=== PATIENT | female | born 1990 | race Caucasian/White ===

== ENCOUNTER 2019-05-19 12:00 | Inpatient (IN) | payer OTHER ==
[2019-05-19] MEDS ORDERED: ELECTROLYTE-148 SOLN 500 ML IV ONE (12:22)
[2019-05-19] MEDS ORDERED: CITRIC ACID/SODIUM CITRATE 30 ML UNIT-DOSE CUP PO ONE (12:22)
[2019-05-19] MEDS ORDERED: ELECTROLYTE-148 SOLN 1,000 ML IV SCH (12:30)
[2019-05-19 12:52] LABS: INR 0.96 (0.83-1.09); PROTHROMBIN TIME (PATIENT) 11.3 SEC (9.7-13.0)
[2019-05-19 12:54] LABS: ACTIVATED PTT 30.4 SECONDS (25.2-36.5)
[2019-05-19 12:59] VITALS: BMI 28.6
[2019-05-19] MEDS ORDERED: OXYTOCIN 20 UNITS in 0.9% NS 40 UNIT/2,000 ML INFUS.BAG IV ONE (13:31)
--- NOTE | 2019-05-19 13:45 | HP ---
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: No: Alzheimer's, CVA, Dementia, Migraine, Multiple Sclerosis, Peripheral Neuropathy, Parkinson's, Seizure, Syncope, TIA, Vertigo, Other Cardiovascular: No: AFIB, Aneurysm, Aortic Insufficiency, Aortic Stenosis, CAD, CHF, Deep Vein Thrombosis, HTN, Hyperlipdemia, ND, Mitral Insufficiency, Mitral Stenosis, Murmur, Pulmonary Hypertension, Other Pulmonary: No: Asthma, Bronchitis, Cancer, COPD, O2 Dependent, Pneumonia, Previously Intubated, Pulmonary Embolus, Pulmonary Fibrosis, Sleep Apnea, Other Gastrointestinal: No: Ascites, Cancer, Constipation, Crohn's Disease, Diverticulitis, Diverticulosis, Esophageal Varices, Gastritis, GERD, GI Bleed, Hemorrhoids, Hiatal Hernia, Inflamatory Bowel Disease, Irritable Bowel Disease, Pancreatitis, Peptic Ulcer Disease, Ulcerative Colitis, Other Hepatobiliary: No: Cirrhosis, Cholelithiasis, Cholecystitis, Choledocholithiasis , Hepatitis A, Hepatitis B, Hepatitis C, Other Renal/: No: Renal Failure, Renal Inusuff, BPH, Cancer, Hematuria, Hemodialysis , Neurogenic Bladder, Renal Calculi, UTI, Other Reproductive: No: Ectopic , Endometriosis, Fibroids, PID, Polycystic Ovary Syndrome, Postmenopausal, Other ...: 1 ...Para: 0 ...Term: 0 ...: 0 ...Spon : 0 ...Induced : 0 ...Multiple Gestation: 0 ...LMP: 08/15/18 ... Weeks Gestation by Dates: 39.4 ...EDC by Dates: 05/22/19 ...EDC by Sono: 05/23/19 Heme/Onc: No: Anemia, B12 Deficiency, Bleeding Disorder, Cancer, Current Chemotherapy, Current Radiation Therapy, Hemochromatosis, Hypercoaguable State, Myeloproliferative Synd, Sickle Cell Disease, Sickle Cell Trait, Thrombocytopenia, Other Infectious Disease: No: AIDS, C-Diff, Herpes Zoster, HIV, MRSA, STD's, Tuberculosis, VREF, Other Psych: No: Addictions, Anxiety, Bipolar, Depression, Panic, Psychosis, Schizophrenia, Other Musculoskeletal: No: Bursitis, Chronic low back pain, Hemiparesis, Hemiplegia, Osteoarthritis, Paraplegia, Other Rheumatology: No: Fibromyalgia, Gout, Lupus, Rheumatoid Arthritis, Sarcoidosis, Vasculitis, Other ENT: No: Allergic Rhinitis, Sinusitis, Other Endocrine: No: Papillion's Disease, Pankaj's Disease, Diabetes Insipidus, Diabetes Mellitus, Hyperparathyroidism, Hyperthyroidism, Hypothyroidism, Osteopenia, SIADH, Other Dermatology: No: Basal Cell, Cellulitis, Eczema, Melanoma, Psoriasis, Squamous Cell, Other - Past Surgical History Past Surgical History: No: None, AAA Repair, AICD, Amputation, Appendectomy, Arthrosocopy, AV Fistula/Graft, Bariatric Surgery, Breast Biopsy, Bypass, CABG, Carotid Endarterectomy, Cataract Removal, Cholecystectomy, Colectomy, Colonoscopy, Colostomy, Craniotomy, , Cystectomy, Hernia Repair, Hysterectomy, Ileal Conduit, Ileosotomy, Joint Replacement, Kidney Transplant, Laminectomy, Liver Transplant, Mastectomy, Nephrectomy, Oopherectomy, Orchiectomy, Permanent Pacemaker, Prostatectomy, Splenectomy, Stent, Thoracotomy , TURP, Tonsillectomy, Tubal Ligation, Upper Endoscopy, Valve Replacement, Vasectomy, Vein Stripping/Ligation Hx Myomectomy: No Hx Transabdominal Cerclage: No - Smoking History Smoking history: Never smoked Have you smoked in the past 12 months: No - Alcohol/Substance Use Hx Alcohol Use: No Home Medications - Allergies Allergies/Adverse Reactions: Allergies Allergy/AdvReac Type Severity Reaction Status Date / Time No Known Allergies Allergy Verified 05/19/19 12:22 - Home Medications Home Medications: Ambulatory Orders Vits96/Iron Fum/Folic [ Tablet] 1 each PO DAILY 05/19/19 Family Medical History Family History: Unremarkable Review of Systems Findings/Remarks: N/A Physical Exam - Maternity Vital Signs: Vital Signs Temperature 98.8 F 05/19/19 12:37 Pulse Rate 88 05/19/19 12:37 Respiratory Rate 18 05/19/19 12:37 Blood Pressure 116/78 05/19/19 12:37 O2 Sat by Pulse Oximetry (%) Constitutional: Yes: Well Nourished HENT: Yes: Atraumatic Neck: Yes: Supple Cardiovascular: Yes: Regular Rate and Rhythm Breast(s): Yes: WNL - Abdominal Exam/OB Number of Fetuses: Single Presentation: Breech (bedside sono) Contractions: No Regularity: Irritability Monitor Mode: External Heart Rate (range): 125 Category: I Accelerations: Uniform Decelerations: None - Vaginal Exam/OB Vaginal Bleediing: No Speculum Exam: No Amniotic Membrane Status: Intact Presentation: Marc Breech - Physical Exam Musculoskeletal: Yes: WNL Extremities: Yes: WNL Edema: Yes Edema: LLE: Trace, RLE: Trace Integumentary: Yes: WNL ...Motor Strength: WNL Psychiatric: Yes: Alert, Oriented Imaging - Results Ultrasound: Report Reviewed Assessment/Plan 28 y/o G1 @ 39.4wks, breech presentation scheduled CD, risks and complications of procedure discussed and all questions answered. Informed consnet obtained. -Proceed as scheduled
[2019-05-19] MEDS ORDERED: morphine SULFATE/PF 0.5 MG/ML (2cc Syringe - QUVA) ONE (13:55)
[2019-05-19] MEDS ORDERED: ONDANSETRON 4 MG/2 ML VIAL IVPUSH PRN (13:56)
[2019-05-19] MEDS ORDERED: OXYTOCIN 20 UNITS in 0.9% NS 20 UNIT/1,000 ML INFUS.BAG IV ONE (13:57)
[2019-05-19] MEDS ORDERED: IBUPROFEN 800 MG/8 ML IJ IVPB PRN (16:51)
[2019-05-19] MEDS ORDERED: OXYTOCIN 20 UNITS in 0.9% NS 20 UNIT/1,000 ML INFUS.BAG IV SCH (17:00)
--- NOTE | 2019-05-19 17:04 | OP ---
Operative Note - Note: Operative Date: 05/19/19 (dic # [id number]) Pre-Operative Diagnosis: Scheduled section for breech presentation Operation: PLTCS Findings: see dictation Post-Operative Diagnosis: Same as Pre-op Surgeon: Jose Mercado Emergency Department Manager: Hemant Chisholm Anesthesia: Spinal Estimated Blood Loss (mls): 700 Operative Report Dictated: Yes
--- NOTE | 2019-05-19 17:28 | OP ---
DATE OF OPERATION: 05/19/2019 ATTENDING PHYSICIAN: Jose Ann MD. PREOPERATIVE DIAGNOSIS: A 28-year-old 1 at 39 and 4 weeks of gestation, breech presentation, scheduled section. POSTOPERATIVE DIAGNOSIS: A 28-year-old 1 at 39 and 4 weeks of gestation , breech presentation, scheduled section. Double footling breech. SURGERY: Primary low transverse section. SURGEON: Jose Ann MD. HOME HEALTH OCCUPATIONAL THERAPIST: EDI Champagne. ANESTHESIA: Spinal. ESTIMATED BLOOD LOSS: 100. INTRAVENOUS FLUIDS: 1100. URINE OUTPUT: Clear urine. COMPLICATIONS: None. INTRAOPERATIVE FINDINGS: Normal intraabdominal wall anatomy. The low uterine segment was slightly effaced. Infant clear amniotic fluid in double footling breech presentation back anterior, live viable male. Small fundal subserosal fibroid approximately 2 x 1 cm noted. Lateral tubes and ovaries consistent with normal anatomy. DESCRIPTION OF PROCEDURE: The patient was taken to the operating room where anesthesia was found to be adequate. She was then prepped and draped in the normal sterile fashion. A Blanco catheter was placed atraumatically. Appropriate timeout took place. Pfannenstiel skin incision was made with the scalpel and carried to underlying fascia with the Bovie. The fascia was incised in the midline, and incision extended laterally with sharp dissection. The underlying rectus muscles were dissected off sharply. The rectus muscles were in the midline with blunt dissection, and the peritoneum was entered bluntly as well. Incision was extended laterally with blunt dissection. Bladder blade was placed on the lower uterine segment as previously mentioned. Transverse lower uterine segment incision was made with the scalpel and extended laterally with blunt dissection. 's feet were secured and delivered through the surgical incision with breech delivery maneuvers without difficulty. The umbilical cord was clamped and cut after delay. The infant was handed off to the waiting NICU staff. The sample for the cord for gases and blood were obtained. The placenta was delivered manually and intact. The lower uterine segment incision was reapproximated with 1-0 Polysorb running locked suture. Excellent structural reapproximation with 1 layered suture. Two figure-of- eights of the same suture were utilized to neutralize minimal oozing from the midline incision. The uterus was internalized to the pelvic cavity and gutters were cleared of all clots and debris. Lower uterine segment incision again noted to be dry. Bladder dome and rectal muscles fascial interface were noted to be dry. The fascial incision was reapproximated with 0 Polysorb running locked sutures. Excellent structural reapproximated achieved and confirmed by digital palpation by the surgeon. Subcutaneous tissues were copiously irrigated and bleeders neutralized with Bovie cautery. The subcutaneous tissues were reapproximated with 2-0 chromic subcuticular sutures. Skin incision was reapproximated with surgical marie. Excellent hemostasis at the end of the procedure. Patient in stable condition. Instrument count was performed by the staff and reported as correct x2. JOSE ANN MD [id number] MTDD
[2019-05-19] MEDS ORDERED: CEFAZOLIN 1 GM/D5W 1 GM/50 ML BAG IVPB ONE (23:00)
[2019-05-20 08:00] LABS: BASO % 0.5 % (0-2.0); EOS % 0.1 % (0-4.5); HEMATOCRIT 34.6 % (32.4-45.2); HEMOGLOBIN 11.7 GM/dL (10.7-15.3); LYMPH % 13.7 % (8-40); MCH 30.6 pg (25.7-33.7); MCHC 33.7 g/dl (32.0-36.0); MEAN CELL VOLUME 90.8 fl (80-96); MEAN PLT VOLUME 6.8 fl (7.5-11.1); MONO % 6.3 % (3.8-10.2); NEUT % 79.4 % (42.8-82.8); PLATELET COUNT 356 K/MM3 (134-434); RBC 3.81 M/mm3 (3.60-5.2); RDW 14.1 % (11.6-15.6); WHITE BLOOD COUNT 11.6 K/mm3 (4.0-10.0)
--- NOTE | 2019-05-20 08:04 | PN ---
Post Progress Note - Subjective Subjective: Patient is doing well, not yet ambulating, tolerating PO, lochia decreased, miner is out Post Day: 1 Type of Delivery: Primary C/S Vital Signs: Vital Signs Temperature 99 F 05/20/19 06:00 Pulse Rate 96 H 05/20/19 06:00 Respiratory Rate 18 05/20/19 06:00 Blood Pressure 97/75 05/20/19 06:00 O2 Sat by Pulse Oximetry (%) 100 05/19/19 16:30 Uterus: Yes: Fundus Firm Incision: Yes: Dressing dry and intact, Nichol intact Abdomen/GI: Yes: Abdomen soft Lochia, amount: Moderate Extremities: Yes: Calves non-tender Activity: Other Assessment/Plan POD # 1 S/P PLTCS for breech presentation, in stable condition. Patient expressed interest in circumcision -Continue PP/post-op care -Encourage ambulation -Anticipate D/C on POD # 3
[2019-05-20] MEDS: oxyCODONE HCL 5 MG TABLET PO PRN ×2 (16:03→23:01)
[2019-05-20] MEDS: IBUPROFEN 600 MG TABLET (FP) PO PRN ×2 (16:04→23:02)
[2019-05-20] MEDS ORDERED: BISACODYL 10 MG SUPP.RECT RC PRN (16:52)
[2019-05-20] MEDS: SIMETHICONE 80 MG TAB.CHEW (FP) PO PRN (23:01)
[2019-05-21] MEDS: oxyCODONE HCL 5 MG TABLET PO PRN ×3 (08:09→22:04)
[2019-05-21] MEDS: SIMETHICONE 80 MG TAB.CHEW (FP) PO PRN ×3 (08:10→22:04)
[2019-05-21] MEDS: IBUPROFEN 600 MG TABLET (FP) PO PRN ×3 (08:10→22:05)
--- NOTE | 2019-05-21 08:32 | PN ---
Post Progress Note - Subjective Subjective: c/o pain max 710 , currently 3/10 breast feeding bm not done, gas discomfort requests something for BM Post Day: 2 Type of Delivery: Primary C/S Vital Signs: Vital Signs Temperature 98.6 F 05/20/19 21:34 Pulse Rate 92 H 05/20/19 21:34 Respiratory Rate 18 05/20/19 21:34 Blood Pressure 111/72 05/20/19 21:34 O2 Sat by Pulse Oximetry (%) 100 05/19/19 16:30 Breast Exam: Yes: Soft, Other (BF ). No: Engorged Uterus: Yes: Fundus Firm, Fundus below umbilicus, Non-tender Incision: Yes: [place] intact. No: Redness, Oozing Abdomen/GI: Yes: Abdomen soft, Passing flatus, Tolerating PO (diet). No: Abdominal Distention, Tender Lochia: Yes: Rubra Lochia, amount: Moderate Extremities: Yes: Calves non-tender Perineum: Yes: Intact Activity: Ambulating - Labs Labs: CBC WBC 11.6 K/mm3 (4.0-10.0) H 05/20/19 07:15 RBC 3.81 M/mm3 (3.60-5.2) 05/20/19 07:15 Hgb 11.7 GM/dL (10.7-15.3) 05/20/19 07:15 Hct 34.6 % (32.4-45.2) 05/20/19 07:15 MCV 90.8 fl (80-96) 05/20/19 07:15 MCH 30.6 pg (25.7-33.7) 05/20/19 07:15 MCHC 33.7 g/dl (32.0-36.0) 05/20/19 07:15 RDW 14.1 % (11.6-15.6) 05/20/19 07:15 Plt Count 356 K/MM3 (134-434) 05/20/19 07:15 MPV 6.8 fl (7.5-11.1) L 05/20/19 07:15 Absolute Neuts (auto) 9.2 K/mm3 (1.5-8.0) H 05/20/19 07:15 Neutrophils % 79.4 % (42.8-82.8) 05/20/19 07:15 Lymphocytes % 13.7 % (8-40) D 05/20/19 07:15 Monocytes % 6.3 % (3.8-10.2) 05/20/19 07:15 Eosinophils % 0.1 % (0-4.5) 05/20/19 07:15 Basophils % 0.5 % (0-2.0) 05/20/19 07:15 Nucleated RBC % 0 % (0-0) 05/20/19 07:15 Problem List - Problems (1) Status post section routine follow-up Code(s): Z39.2 - ENCOUNTER FOR ROUTINE FOLLOW-UP; Z98.891 - HISTORY OF UTERINE SCAR FROM PREVIOUS SURGERY Assessment/Plan stable . plan encourage ambulation , po fluids po colace prn
[2019-05-21] MEDS: DOCUSATE SODIUM 100 MG CAPSULE (FP) PO SCH ×2 (09:33→22:04)
--- NOTE | 2019-05-21 17:14 | PATH ---
Surgical Pathology Report Patient Name: ANNE PERDOMO [facility]. Rec. 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 Electronically Signed Paty Worthy M.D. Gross Description The specimen is received fresh labeled placenta and is a 452 gram, 15.5 x 13.0 x 2.7 cm. placenta with attached membranes and umbilical cord. The attached membranes are agarwal green, meconium stained, translucent with focal opacities and insert marginally. The umbilical cord measures 16 cm. in length and averages 1 cm. in diameter. The cord inserts at the margin. No true knots or strictures are identified. Cut surface of the umbilical cord reveals 3 vessels. The surface is beltran green, meconium stained with minimal fibrin deposition and appropriate caliber vessels. The maternal surface is red-brown with focal defects. Sectioning reveals red-brown, spongy parenchyma. No lesions are identified. Crib Pad Maker sections are submitted in three cassettes as follows: 1- membrane rolls and umbilical cord; 2-3- full thickness sections of placenta. /05/20/2019 [facility]/05/20/2019
--- NOTE | 2019-05-22 08:22 | PN ---
Post Progress Note - Subjective Subjective: Pain controlled. Ambulating. Lochia < menses. No fevers/chills. Post Day: 3 Type of Delivery: Primary C/S Vital Signs: Vital Signs Temperature 98.0 F 05/21/19 22:00 Pulse Rate 74 05/21/19 22:00 Respiratory Rate 18 05/21/19 22:00 Blood Pressure 104/73 05/21/19 22:00 O2 Sat by Pulse Oximetry (%) 100 05/19/19 16:30 Uterus: Yes: Fundus below umbilicus Incision: Yes: Dressing dry and intact, Nichol intact Abdomen/GI: Yes: Abdomen soft, Passing flatus, Tolerating PO Lochia: Yes: Rubra Lochia, amount: Small Extremities: Yes: Calves non-tender Perineum: Yes: Intact Activity: Ambulating - Labs Labs: CBC WBC 11.6 K/mm3 (4.0-10.0) H 05/20/19 07:15 RBC 3.81 M/mm3 (3.60-5.2) 05/20/19 07:15 Hgb 11.7 GM/dL (10.7-15.3) 05/20/19 07:15 Hct 34.6 % (32.4-45.2) 05/20/19 07:15 MCV 90.8 fl (80-96) 05/20/19 07:15 MCH 30.6 pg (25.7-33.7) 05/20/19 07:15 MCHC 33.7 g/dl (32.0-36.0) 05/20/19 07:15 RDW 14.1 % (11.6-15.6) 05/20/19 07:15 Plt Count 356 K/MM3 (134-434) 05/20/19 07:15 MPV 6.8 fl (7.5-11.1) L 05/20/19 07:15 Absolute Neuts (auto) 9.2 K/mm3 (1.5-8.0) H 05/20/19 07:15 Neutrophils % 79.4 % (42.8-82.8) 05/20/19 07:15 Lymphocytes % 13.7 % (8-40) D 05/20/19 07:15 Monocytes % 6.3 % (3.8-10.2) 05/20/19 07:15 Eosinophils % 0.1 % (0-4.5) 05/20/19 07:15 Basophils % 0.5 % (0-2.0) 05/20/19 07:15 Nucleated RBC % 0 % (0-0) 05/20/19 07:15 Assessment/Plan 28yo s/p PLTCS for breech, POD#3 Routine PP care PO pain control Labs reviewed Anticipate d/c to home Keith Bryant MD
[2019-05-22 08:37] LABS: BASO % 0.5 % (0-2.0); EOS % 0.9 % (0-4.5); HEMATOCRIT 33.8 % (32.4-45.2); HEMOGLOBIN 11.7 GM/dL (10.7-15.3); LYMPH % 16.3 % (8-40); MCH 31.4 pg (25.7-33.7); MCHC 34.6 g/dl (32.0-36.0); MEAN CELL VOLUME 90.6 fl (80-96); MEAN PLT VOLUME 6.8 fl (7.5-11.1); MONO % 5.3 % (3.8-10.2); PLATELET COUNT 407 K/MM3 (134-434); RBC 3.73 M/mm3 (3.60-5.2); RDW 13.8 % (11.6-15.6); WHITE BLOOD COUNT 9.4 K/mm3 (4.0-10.0)
--- NOTE | 2019-05-22 08:37 | DS ---
Physical Examination Vital Signs: Vital Signs Temperature 98.0 F 05/21/19 22:00 Pulse Rate 74 05/21/19 22:00 Respiratory Rate 18 05/21/19 22:00 Blood Pressure 104/73 05/21/19 22:00 O2 Sat by Pulse Oximetry (%) 100 05/19/19 16:30 Constitutional: Yes: Well Nourished, No Distress, Calm Eyes: Yes: WNL, Conjunctiva Clear, EOM Intact HENT: Yes: WNL, Atraumatic, Normocephalic Neck: Yes: WNL, Supple, Trachea Midline Cardiovascular: Yes: WNL, Regular Rate and Rhythm Respiratory: Yes: WNL, Regular, CTA Bilaterally Gastrointestinal: Yes: WNL, Normal Bowel Sounds Musculoskeletal: Yes: WNL Extremities: Yes: WNL Edema: No Integumentary: Yes: WNL Neurological: Yes: WNL, Alert, Oriented ...Motor Strength: WNL Psychiatric: Yes: WNL Discharge Summary Problems reviewed: Yes Reason For Visit: CSECTION Current Active Problems Status post section routine follow-up (Acute) Procedures: Principal: [facility] [place] Hospital Course: Patient presented for a primary for breech She had an uncomplicated procedure She met all milestones She was discharged home on POD#3 Condition: Stable - Instructions Diet, Activity, Other Instructions: Return to regular diet as tolerated. Please refrain from strenuous activity as instructed by physician. Follow up at [facility] within a week for incision check and staple removal. Referrals: Criselda Daley CNM [Certified Nurse Admitting Clerk] - Jose Mercado MD [Staff Physician] - Disposition: HOME - Home Medications Comprehensive Discharge Medication List: Ambulatory Orders Vits96/Iron Fum/Folic [ Tablet] 1 each PO DAILY 05/19/19 Acetaminophen [Tylenol] 650 mg PO Q6H PRN #30 capsule MDD 5 05/21/19 Ibuprofen 600 mg PO Q6H PRN #30 tablet 05/21/19 Oxycodone HCl 5 mg PO Q6H PRN 3 Days #12 tablet MDD 5 05/21/19 Pnv No.103/Folic/Om3s/Fish Oil [ Gummies] 1 each PO DAILY 30 Days #30 tab.chew 05/22/19
[2019-05-22] MEDS: DOCUSATE SODIUM 100 MG CAPSULE (FP) PO SCH (11:05)
[2019-05-22] MEDS: SIMETHICONE 80 MG TAB.CHEW (FP) PO PRN (11:07)
[2019-05-22] MEDS: IBUPROFEN 600 MG TABLET (FP) PO PRN (11:07)
[2019-05-22] MEDS: oxyCODONE HCL 5 MG TABLET PO PRN (11:07)
[2019-05-22 14:00] VITALS: BP 110/79; PULSE 95; TEMP 98.3
== END 2019-05-22 13:40 | disposition home or self-care (01) | DRG 540 ==
LOC: JLDR 12:00 → J3W 17:26
PROVIDERS: ADMIT Student in an Organized Health Care Education/Training Program; ATTEND Student in an Organized Health Care Education/Training Program
PROC: 10D00Z1 Extraction of Products of Conception, Low, Open Approach (ICD-10-PCS; principal; 2019-05-19)
DX: O32.8XX0 Maternal care for other malpresentation of fetus, not applicable or unspecified (principal); Z3A.39 39 weeks gestation of pregnancy; Z37.0 Single live birth
CPT/HCPCS: 36415; 36600; 82803; 85025; 85610; 85730; 88307-TC

== ENCOUNTER 2023-05-20 00:43 | Emergency (ER) | payer SELFPAY ==
[2023-05-20 01:19] VITALS: BP 121/82; PULSE 84; RESP 20; TEMP 97.8; BMI 27.0
[2023-05-20] MEDS ORDERED: DEXAMETHASONE SOD PHOSPHATE 10 MG/1 ML VIAL ONE (01:38)
[2023-05-20] MEDS: DEXAMETHASONE SOD PHOSPHATE 10 MG/1 ML VIAL IM ONE (01:40)
[2023-05-20] MEDS: ALBUTEROL SO4 2.5/IPRATROPIUM 0.5 INH SOL 3 ML VIAL.NEB. NEB ONE (01:40)
[2023-05-20] MEDS ORDERED: ERYTHROMYCIN 0.5% OPHTHALMIC OINTMENT 3.5 GM TUBE ONE (02:43)
[2023-05-20] MEDS: ERYTHROMYCIN 0.5% OPHTHALMIC OINTMENT 3.5 GM TUBE OU ONE (02:44)
[2023-05-20 02:47] LABS: BASO % 0.8 % (0-2.0); EOS % 1.2 % (0-4.5); HEMATOCRIT 36.4 % (32.4-45.2); HEMOGLOBIN 12.4 GM/dL (10.7-15.3); LYMPH % 32.2 % (8-40); MEAN CELL VOLUME 88.4 fl (80-96); MEAN PLT VOLUME 6.6 fl (7.5-11.1); MONO % 7.9 % (3.8-10.2); NEUT % 57.9 % (42.8-82.8); PLATELET COUNT 447 10^3/uL (134-434); RBC 4.12 M/mm3 (3.60-5.2); RDW 13.8 % (11.6-15.6); WHITE BLOOD COUNT 11.3 K/mm3 (4.0-10.0)
[2023-05-20 03:15] LABS: POTASSIUM 4.2 mmol/L (3.5-5.1)
[2023-05-20 03:17] LABS: ALBUMIN 3.7 g/dl (3.4-5.0); BLOOD UREA NITROGEN 17.3 mg/dL (7-18)
[2023-05-20 03:20] LABS: CREATININE 0.7 mg/dL (0.55-1.3)
[2023-05-20 03:22] LABS: BILIRUBIN,TOTAL 0.2 mg/dL (0.2-1); TOT PROT 8.2 g/dl (6.4-8.2)
== END 2023-05-20 03:30 | disposition home or self-care (01) ==
LOC: JER 00:43
PROC: 3E023GC Introduction of Other Therapeutic Substance into Muscle, Percutaneous Approach (ICD-10-PCS; principal; 2023-05-20)
PROC: 3E0F7GC Introduction of Other Therapeutic Substance into Respiratory Tract, Via Natural or Artificial Opening (ICD-10-PCS; 2023-05-20)
DX: R05.9 Cough, unspecified (principal); J02.9 Acute pharyngitis, unspecified; R09.81 Nasal congestion; R50.9 Fever, unspecified; R07.89 Other chest pain; J06.9 Acute upper respiratory infection, unspecified; H10.9 Unspecified conjunctivitis; Z20.822 Contact with and (suspected) exposure to COVID-19
CPT/HCPCS: 0241U-QW; 36415; 71046-TC-FY; 80053; 85025; 87651; 99284-25; J1100